=== PATIENT | male | born 1960 | race Hispanic/Latino ===

== ENCOUNTER 2017-10-24 08:00 | Emergency (ER) | payer BC ==
[2017-10-24 08:05] VITALS: BMI 27.1
[2017-10-24 08:10] VITALS: RESP 18; TEMP 97.8; O2SAT 99
--- NOTE | 2017-10-24 09:18 | ED PDOC ---
Lower Extremity Pain/Injury Time Seen by Provider: 10/24/17 08:20 Chief Complaint (Nursing): Lower Extremity Problem/Injury Chief Complaint (Provider): Lower extremity injury History Per: Patient History/Exam Limitations: no limitations Onset/Duration Of Symptoms: Days (x1) Current Symptoms Are (Timing): Still Present Pain Scale Rating Of: 8 Additional Complaint(s): Lisandro Lynn is a 56 year old male, with no past medical history, who presents to the emergency department complaining of right ankle pain onset since last night. Patient reports last night he was at his work's [employer], he drank some alcohol, when he slipped going down the stairs with his ankle inverted. Patient took aspirin last night. This morning he noticed increased swelling and pain. No further medical complaints. PMD: None provided. - Ankle/Foot Description Of Injury: Fell Currently Unable To: Bear Weight Past Medical History Reviewed: Historical Data, Nursing Documentation, Vital Signs Vital Signs: Last Vital Signs Temp 97.8 F 10/24/17 08:07 Pulse 68 10/24/17 08:07 Resp 18 10/24/17 08:07 BP 99/69 L 10/24/17 08:02 Pulse Ox 99 10/24/17 08:07 - Medical History PMH: No Chronic Diseases - Surgical History Surgical History: No Surg Hx - Family History Family History: States: Unknown Family Hx - Social History Current smoker - smoking cessation education provided: No Alcohol: None Drugs: Denies - Home Medications Home Medications: Ambulatory Orders Medication Instructions Recorded oxyCODONE/Acetaminophen [Percocet 1 tab PO Q6H PRN #5 tab 10/24/17 5/325 mg Tab] - Allergies Allergies/Adverse Reactions: Allergies Allergy/AdvReac Type Severity Reaction Status Date / Time No Known Allergies Allergy Verified 10/24/17 08:11 Review of Systems ROS Statement: Except As Marked, All Systems Reviewed And Found Negative Musculoskeletal: Positive for: Foot Pain (right ankle) Physical Exam - Reviewed Nursing Documentation Reviewed: Yes Vital Signs Reviewed: Yes - Physical Exam Appears: Positive for: Well, Non-toxic, No Acute Distress Head Exam: Positive for: ATRAUMATIC, NORMAL INSPECTION Skin: Positive for: Normal Color, Warm, Dry Eye Exam: Positive for: Normal appearance Neck: Positive for: Normal, Painless ROM, Supple Pulses-Dorsalis Pedis (R): 2+ Extremity: Positive for: Normal ROM (right knee ), Tenderness (right ankle), Capillary Refill (<2 seconds), Swelling (right ankle). Negative for: Pedal Edema, Calf Tenderness, Deformity Neurologic/Psych: Positive for: Alert, Oriented - ECG O2 Sat by Pulse Oximetry: 99 (RA) Pulse Ox Interpretation: Normal Medical Decision Making Medical Decision Making: Initial Impression: right foot pain. Rule out: fracture Initial Plan: --Tylenol 975 mg PO --Ankle right 3 views routine [RAD] --Foot right 3 views routine [RAD] --reevaluation -Patient is declining IV medication, only Tylenol 09:35 Foot xray FINDINGS: BONES: No acute fracture dislocation of forefoot, midfoot or hindfoot is grossly evident. A complex right ankle fracture is identified and is described in separate ankle examination. JOINTS: Moderate hallux valgus deformity is appreciate with limited degenerative changes throughout the interphalangeal joints diffusely. SOFT TISSUES: Normal. OTHER FINDINGS: None. IMPRESSION: Limited degenerative changes as discussed above. Complex right ankle fracture is discussed in a separate right ankle radiograph series performed 10/24/2017. Please see separate report. 09:35 Ankle xray FINDINGS: BONES: Fractures of the medial and lateral malleoli are identified with subluxation of the talus partially 50 relative to the tibiotalar joint. The medial malleolar fracture is transverse with the major fracture fragment distracted inferiorly and medially. The lateral malleolar fracture is a spiral fracture which is minimally displaced distally and laterally. The medial ankle mortise is grossly widened with the lateral mortise variably narrowed superiorly and widened inferiorly. No destructive bony lesion is identified throughout the visualize right ankle. The talar dome appears intact. JOINTS: Discussed above. SOFT TISSUES: Diffuse soft tissue edema seen throughout the right ankle. OTHER FINDINGS: None. IMPRESSION: There is at least a bimalleolar fracture involving both medial lateral malleoli and possibly the posterior tibia though this is not definite. Further characterization by CT can be can improve the distal tibia intact or fractured. There is a subluxation of the talus laterally approximate 50 percent from its normal joint position. The mortise is distorted as described above. 11:34 -Spoke with podiatry, who will come down to see pt. informed pt of xray results. pt at bedside. 11:48 -Cancelled labs, patient wants to go home and follow up with his own orthopedist. podiatry splinted the ankle in the ER. 12:44 -Podiatry saw patient who is not from this area and wants to follow-up with his own data processing equipment repairer/orthopedist. Patient was given Rx for Percocet and understands he cannot bear weight on foot, given crutches and instructions. Scribe Attestation: Documented by Howie Elias, acting as a scribe for Moustapha Mchugh MD Provider Scribe Attestation: All medical record entries made by the Scribe were at my direction and personally dictated by me. I have reviewed the chart and agree that the record accurately reflects my personal performance of the history, physical exam, medical decision making, and the department course for this patient. I have also personally directed, reviewed, and agree with the discharge instructions and disposition. Disposition - Clinical Impression Clinical Impression: Ankle fracture, Uses crutches - Patient ED Disposition Is Patient to be Admitted: No Counseled Patient/Family Regarding: Studies Performed, Diagnosis, Need For Followup - Disposition Referrals: Osmar Loyd MD [Medical Doctor] - Disposition: Routine/Home Disposition Time: 10:25 Condition: IMPROVED Additional Instructions: follow up with your primary orthopedist as soon as possible. preferably tomorrow for evaluation for surgery. return to the ED with any worsening or concerning symptoms Prescriptions: oxyCODONE/Acetaminophen [Percocet 5/325 mg Tab] 1 tab PO Q6H PRN #5 tab PRN Reason: Pain, Moderate (4-7) Instructions: Ankle Fracture (ED), Crutch Instructions (ED) Forms: [employer] (Indonesian)
--- NOTE | 2017-10-24 11:09 | RAD ---
PROCEDURE: Right Ankle Radiographs. HISTORY: r ankle pain sp fall yesterday COMPARISON: None FINDINGS: BONES: Fractures of the medial and lateral malleoli are identified with subluxation of the talus partially 50 relative to the tibiotalar joint. The medial malleolar fracture is transverse with the major fracture fragment distracted inferiorly and medially. The lateral malleolar fracture is a spiral fracture which is minimally displaced distally and laterally. The medial ankle mortise is grossly widened with the lateral mortise variably narrowed superiorly and widened inferiorly. No destructive bony lesion is identified throughout the visualize right ankle. The talar dome appears intact. JOINTS: Discussed above. SOFT TISSUES: Diffuse soft tissue edema seen throughout the right ankle. OTHER FINDINGS: None. IMPRESSION: There is at least a bimalleolar fracture involving both medial lateral malleoli and possibly the posterior tibia though this is not definite. Further characterization by CT can be can improve the distal tibia intact or fractured. There is a subluxation of the talus laterally approximate 50 percent from its normal joint position. The mortise is distorted as described above.
--- NOTE | 2017-10-24 11:10 | RAD ---
PROCEDURE: Right Foot Radiographs. HISTORY: foot pain sp fall COMPARISON: None. FINDINGS: BONES: No acute fracture dislocation of forefoot, midfoot or hindfoot is grossly evident. A complex right ankle fracture is identified and is described in separate ankle examination. JOINTS: Moderate hallux valgus deformity is appreciate with limited degenerative changes throughout the interphalangeal joints diffusely. SOFT TISSUES: Normal. OTHER FINDINGS: None. IMPRESSION: Limited degenerative changes as discussed above. Complex right ankle fracture is discussed in a separate right ankle radiograph series performed 10/24/2017. Please see separate report.
--- NOTE | 2017-10-24 12:11 | CP.PCM.PN ---
Subjective - Date & Time of Evaluation Date of Evaluation: 10/24/17 Time of Evaluation: 12:04 - Subjective Subjective: 56 y/o male with no significant PMHx was seen and evaluated at bedside with his s/p right ankle injury. Patient states that he was at a work republic[employer] yesterday and twisted his ankle and fell down the stairs. Patient states that after the injury he thought it was just an ankle sprain and did not think too much of it. Patient states that he went up the stairs putting weight on it. Patient reports that he woke up with a lot of pain this morning and decided to come to the ED. Reports that he lives in [place] and would like to get his treatment done there because he is not able to follow up at the hospital. 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 Patient states that he has pain in his ankle but it is manageable. Denies of any recent F/N/V/C/SOB/CP now. Denies of any other pedal complains now. PMHx: denies PSHx: denies Allergies: NKDA SHx: denies smoking, EtOH use, or illicit drug usage Objective - Vital Signs/Intake and Output Vital Signs (last 24 hours): Temp Pulse Resp BP Pulse Ox 97.8 F 68 18 99/69 L 99 10/24/17 08:07 10/24/17 08:07 10/24/17 08:07 10/24/17 08:02 10/24/17 11:36
--- NOTE | 2017-10-24 12:17 | CP.PCM.CON ---
History of Present Illness - History of Present Illness History of Present Illness: 56 y/o male with no significant PMHx was seen and evaluated at bedside with his s/p right ankle injury. Patient states that he was at a work green party yesterday and twisted his ankle and fell down the stairs. Patient states that after the injury he thought it was just an ankle sprain and did not think too much of it. Patient states that he went up the stairs putting weight on it. Patient reports that he woke up with a lot of pain this morning and decided to come to the ED. Reports that he lives in [place] and would like to get his treatment done there because he is not able to follow up at the hospital. 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 Patient states that he has pain in his ankle but it is manageable. Denies of any recent F/N/V/C/SOB/CP now. Denies of any other pedal complains now. PMHx: denies PSHx: denies Allergies: NKDA SHx: denies smoking, EtOH use, or illicit drug usage Review of Systems - Constitutional Constitutional: As Per HPI Past Patient History - Past Social History Alcohol: None Drugs: Denies - PSYCHIATRIC Hx Substance Use: No - SURGICAL HISTORY Hx Surgeries: No Meds Allergies/Adverse Reactions: Allergies Allergy/AdvReac Type Severity Reaction Status Date / Time No Known Allergies Allergy Verified 10/24/17 08:11 Physical Exam - Constitutional Appears: Well, Non-toxic, No Acute Distress - Extremities Exam Extremities exam: Negative for: calf tenderness Additional comments: Right LE focused exam: VASC: DP/PT pulses are palpable 2/4, Cap refill time: < 3 sec to all digits, Temp gradient: warm to cool from proximal to distal, non-pitting edema noted circumferential around the ankle joint accompanied with diffuse ecchymosis DERM: no open lesions, no clinical suspicion of active infection NEURO: Protective sensation grossly intact MSK: Diffuse pain on palpation at the ankle joint, unable to asses AROM due to patient guarding, AROM intact at MTPJ with mild discomfort, no pain on palpation of the calf - Neurological Exam Neurological exam: Alert, Oriented x3 - Psychiatric Exam Psychiatric exam: Normal Affect, Normal Mood Results - Vital Signs Recent Vital Signs: Last Vital Signs Temp 97.8 F 10/24/17 08:07 Pulse 68 10/24/17 08:07 Resp 18 10/24/17 08:07 BP 99/69 L 10/24/17 08:02 Pulse Ox 99 10/24/17 11:36 Assessment & Plan - Assessment and Plan (Free Text) Assessment: 56 y/o male with no significant PMHx seen and evaluated at bedside in ED for displaced bi-malleolar vs. tri-malleolar fracture Plan: Patient seen and evaluated at bedside in ED Patient discussed in details with attending Dr. Genaro Camacho reviewed - afebrile X-rays of the foot and ankle ordered/reviewed - displaced and angulated medial mallolus with oblique radiolucent line on fibula on an AP view consistent with at least bi-malleolar fracture. Lateral view indicative of posterior malleolar fracture as well but further study like CT maybe recommended Patient educated the severity of the injury Patient placed in a posterior splint with modified louis compression dressing Tolerated the procedure well Patient given crutches and educated to remain NWB to the RLE Educated that patient will need surgery - patient opted to have the surgery in the home state Demonstrated verbal understanding of the plan Thank you for the podiatry consult and allowing to take part in patient care - Date & Time Date: 10/24/17 Time: 12:24
[2017-10-24] MEDS ORDERED: Oxycodone/Acetaminophen 5/325 mg Tab PO ONE (12:43)
[2017-10-24 13:49] VITALS: BP 108/72; PULSE 70
== END 2017-10-24 13:41 | disposition home or self-care (01) ==
LOC: H.ER 08:00
DX: S82.841A Displaced bimalleolar fracture of right lower leg, initial encounter for closed fracture (principal); W10.9XXA Fall (on) (from) unspecified stairs and steps, initial encounter